=== PATIENT | female | born 1950 | race Caucasian/White ===

== ENCOUNTER 2016-11-20 22:06 | Inpatient (IN) | payer OTHER ==
[~2016-11-20] VITALS: Ht 160 cm; Wt 71.4 kg
--- NOTE | ~2016-11-20 | EKG ---
[place], [place] ELECTROCARDIOGRAM REPORT NAME: MAYRA CEDENO UNIT #: [id number] ROOM: 511 DOCTOR: ANNETTE SCANLON MD BIRTHDATE: [birth year] DOS: 11/21/2016 TIME: 22:16 p.m. Normal sinus rhythm at rate of 80. Early precordial R-wave progression. Nonspecific ST and T-wave changes especially in the lateral leads. Abnormal electrocardiogram. ANNETTE SCANLON MD CM:EKGRPT:ELECTROCARDIOGRAM REPORT [id number] ANNETTE SCANLON MD
--- NOTE | ~2016-11-20 | CON ---
[place], [place] REPORT OF CONSULTATION NAME: MAYRA CEDENO UNIT #: [id number] ROOM: 511 DOCTOR: ANNETTE SCANLON MD BIRTHDATE: [birth year] DOS: 11/21/2016 CARDIOLOGY CONSULTATION REASON FOR CONSULTATION: Chest pain, history of coronary artery disease. HISTORY OF PRESENT ILLNESS: The patient is a 65-year-old woman who does have a history of significant vascular disease. She states that she had angina, which prompted placement of stents in 2010. She was hospitalized here at [facility] with chest pain in January 2016. She ruled out for myocardial infarction. A pharmacologic stress test done on 02/12/2016 showed an ejection fraction of 75% with normal myocardial perfusion. There was no evidence for ischemia or previous infarction. At about the same time she did have an echocardiogram on 02/11/2016 which showed normal left ventricular size, wall motion and systolic function with mild left ventricular hypertrophy, trivial mitral insufficiency, trivial tricuspid insufficiency and a trivial pericardial effusion. In addition to her known coronary disease, she has had bilateral carotid endarterectomies and does have significant claudications of her right leg. She is being followed by Dr. Light for her peripheral vascular disease. She states that for the last 24 hours, she has had a new pain in her left side. She stated that it started as a funny ache in her left anterior chest followed by pain in her left back and numbness in a band-like distribution across her left flank. She continues to have significant pain and tenderness in her back even though the numbness on her left side has improved somewhat. This is different from her initial angina, which she experienced in 2010. Her electrocardiogram has shown no acute changes and her cardiac biomarkers are normal despite the fact that she has discomfort for several hours. PAST MEDICAL HISTORY: Includes: 1. Hypertension. 2. Atherosclerotic heart disease status post 2 stents in 2010. 3. Carotid vascular disease, status post left carotid endarterectomy around 2012 and right carotid endarterectomy around 2014. 4. Lower extremity peripheral vascular disease with claudications and occasional weakness in her right leg. 5. Hyperlipidemia. 6. Essential hypertension. 7. Hypothyroidism. 8. Long-term and ongoing tobacco abuse. 9. History of cholecystectomy and hysterectomy. REVIEW OF SYSTEMS: The patient denies diplopia, loss of vision, or focal weakness, but she did have numbness in her left side prior to admission. She denies syncope or lightheadedness. She denies nausea or vomiting. She denies fevers, chills or sweats. She denies orthopnea or PND. She denies palpitations or syncope. She denies hemoptysis or hematemesis. She denies bleeding in her urine or bowels. She denies any change in bowel or bladder habits. She denies [place], [place] REPORT OF CONSULTATION NAME: MAYRA CEDENO UNIT #: [id number] ROOM: 511 DOCTOR: ANNETTE SCANLON MD BIRTHDATE: [birth year] any swelling in her legs. She does note that she has been told she has a rash on her back in the distribution of her pain, which is new. She denies heat or cold intolerance and denies polyuria, polydipsia. MEDICATIONS: Prior to admission, amlodipine 5 mg per day, aspirin 81 mg per day, vitamin D 1000 units per day, citalopram 20 mg per day, clopidogrel 75 mg per day, famotidine 40 mg daily, fenofibrate 160 mg daily, isosorbide mononitrate 30 mg b.i.d., levothyroxine 0.1 mg daily, losartan 50 mg b.i.d., metoprolol 25 mg b.i.d., and simvastatin 40 mg at h.s. ALLERGIES: She has no known drug allergies. SOCIAL HISTORY: The patient is a long-term and ongoing cigarette smoker. She also smokes marijuana. She denies any alcohol consumption. FAMILY HISTORY: Her father at age 50-60 from a heart attack. Her mother of natural causes. PHYSICAL EXAMINATION: GENERAL: The patient is a well-nourished white female who is awake, alert, oriented. VITAL SIGNS: Pulse is 62 and regular, blood pressure is 174/70. She is afebrile. She weighs 71.4 kg and has a body mass index of 27.9. HEENT: Normocephalic, atraumatic. Extraocular muscles are intact. Sclerae are clear. Pupils are equal, round and react to light. The oral mucosa is moist. Tongue is midline. NECK: Supple. She has no jugular distention. She does have a moderate carotid bruit on the right and a soft bruit on the left. She has no neck or supraclavicular masses. No thyromegaly. LUNGS: Respirations are unlabored. She does have decreased breath sounds at the bases with mild expiratory prolongation. She had no wheezes or rales. She does have a left back mottled erythematous region in the distribution of her pain at about the T8 or T9 level. There is no blister formation at this time. She has no presacral edema, but her skin is tender at the site of the rash. CARDIOVASCULAR: Her heart has a regular rhythm with a soft S4 gallop and no S3 or murmur. The PMI is not displaced. She has no precordial heave, lift or thrill. ABDOMEN: Soft and normally active without masses, organomegaly or bruits. EXTREMITIES: Showed no edema. She has adequate pulses in her left foot but I could not feel any pulses in the popliteal or distal pulses on the right. LABORATORY DATA: I reviewed her electrocardiogram, which showed sinus rhythm with normal tracing. Serial troponin levels have been normal. IMPRESSION: 1. Atypical chest pain with a rash which may be consistent with early herpes zoster. 2. History of coronary artery disease. 3. Stress test and echocardiogram done in January 2016 were low risk examinations. 4. Carotid vascular disease with a right carotid bruit, status post bilateral [place], [place] REPORT OF CONSULTATION NAME: MAYRA CEDENO UNIT #: [id number] ROOM: [facility] DOCTOR: ANNETTE SCANLON MD BIRTHDATE: [birth year] endarterectomies. 5. Peripheral vascular disease with claudications and poor pulses in her right lower extremity below the knee. 6. Elevated blood pressure, not currently well controlled. PLAN: At this point, I would continue to monitor her chest pain. I will increase her beta dwaine to help control her blood pressure and for treatment of her coronary disease. I also stopped amlodipine and started hydrochlorothiazide since this is likely to be more effective in controlling her blood pressure long-term. I would keep a very close watch on her rash on her back and if it does show signs of blistering, this should be treated with antiviral agents to prevent postherpetic neuralgia. It is very likely that she does have herpes zoster and that this is the cause of recurrent symptoms rather than an acute coronary syndrome. We will follow the patient with her other physicians and I thank the hospitalist physicians for asking our advice regarding her care. ANNETTE SCANLON MD CM:CONSTR:REPORT OF CONSULTATION 1150 11/22/16 0605 interface
--- NOTE | ~2016-11-20 | WRIGHTHP ---
[place], [place] PATIENT HISTORY AND PHYSICAL EXAM NAME: MAYRA CEDENO [facility] #: [id number] UNIT #: [id number] ROOM: 511 DOCTOR: VALERIE BOURGEOIS DO BIRTHDATE: [birth year] DOS: 11/21/2016 PRIMARY CARE PHYSICIAN: Dr. Nicole. The patient was seen and evaluated with the resident on 11/21/2016. Please see the resident's note for further details. ASSESSMENT: 1. Acute unstable angina. 2. Dyspnea on exertion. 3. Mild cellulitis of the left lower extremity secondary to cat scratches. 4. Vitamin B12 deficiency. 5. Coronary artery disease with history of stents in 2010. 6. Diabetes mellitus type 2, currently managed with diet. 7. Hypertension. 8. Hyperlipidemia. 9. Chronic obstructive pulmonary disease. 10. Tobacco abuse. 11. Peripheral arterial disease, which was seen on CTA. 12. History of bilateral carotid endarterectomies. 13. Hypothyroidism. 14. Gastroesophageal reflux disease. 15. Negative cardiac stress test in 01/2016. 16. Echocardiogram in 01/2016 measured a normal ejection fraction. PLAN: Continue heparin, beta dwaine, aspirin. Cardiology has been consulted. Continue to follow cardiac enzymes. Antibiotics have been started for the cellulitis from the cat scratches. Repeat labs in the morning. VALERIE BOURGEOIS DO CM:HISPHYS:PATIENT HISTORY AND PHYSICAL EXAMINATION 1320 1341 VALERIE BOURGEOIS DO 11/21/16 1342 interface
[~2016-11-20 22:06] MED LIST: AMLODIPINE BESYL5 MG PO; ASPIR-LOX AD325 MG PO; ASPIRIN81 M1 PO; CIPRO500 MG PO; CITALOPRAM20 MG PO; COZAAR25 M1 PO; FAMOTIDINE20 MG PO; FAMOTIDINE40 MG PO; FENOFIBRATE160 MG PO; GLUCOPHAGE500 MG PO; ISOSORBIDE30 MG PO; KEFLEX 500 MG E2 CAP PO; LEVOTHYROXINE0.1 M1 PO; LOSARTAN POTASS50 M1 PO; MEDROL DOSEPAK4 MG PO; METOPROLOL25 MG PO; PLAVIX75 MG PO; PREDNISONE10 MG PO; PRINIVIL20 MG PO; SIMVASTATIN40 MG PO; VIBRAMYCIN100 MG PO
[2016-11-20 22:15] VITALS: BP 154/80
[2016-11-20] MEDS ORDERED: VITAMIN D31000 IU PO (22:15)
[2016-11-20 22:34] LABS: BASO % 0.4 % (0.0-1.0); EOS # 0.1 10*3/uL (0.0-0.4); EOS % 0.5 % (1.0-4.0); HEMATOCRIT 42.8 % (37.0-47.0); HEMOGLOBIN 14.3 g/dl (12.0-16.0); LYMPH # 1.5 10*3/uL (1.3-4.4); LYMPH % 15.9 % (27.0-41.0); MEAN CELL VOLUME 91.3 fl (81.0-99.0); MEAN CORPUSCULAR HGB 30.5 pg (27.0-31.0); MEAN CORPUSCULAR HGB CONC 33.4 g/dl (33.0-37.0); MONO # 0.5 10*3/uL (0.1-1.0); MONO % 5.8 % (3.0-9.0); NEUT # 7.1 10*3/uL (2.3-7.9); PLATELET COUNT AUTOMATED 226 10*3/uL (130-400); RED BLOOD COUNT 4.69 10*6/uL (4.10-5.10); RED CELL DISTRI WIDTH 13.6 % (0-14.5); WHITE BLOOD COUNT 9.2 10*3/uL (4.8-10.8)
[2016-11-20 23:04] LABS: ALKALINE PHOSPHATASE 66 U/L (45-117); BILIRUBIN, TOTAL 0.4 mg/dl (0.2-1.0); BUN 18 mg/dl (7-24); CARBON DIOXIDE 28 mmol/L (21-32); CHLORIDE 105 mmol/L (98-107); CPK 231 U/L (26-192); EST GLOM FILT AFRICAN AMERICAN > 60 ml/min; GLUCOSE 138 mg/dL (65-99); POTASSIUM 3.4 mmol/L (3.5-5.1); SGOT/AST 19 IU/L (3-35); SGPT/ALT 24 U/L (12-78); SODIUM 142 mmol/L (136-145); TOTAL PROTEIN 7.2 gm/dL (6.4-8.2)
[2016-11-20 23:05] LABS: CKMB 4.7 ng/ml (0.5-3.6)
[2016-11-20 23:15] LABS: TROPONIN I < 0.015 ng/ml (<0.045)
[2016-11-21 01:50] VITALS: BP 174/65; BP 178/65
[2016-11-21 04:00] VITALS: BP 160/74
[2016-11-21 06:34] LABS: BASO % 0.5 % (0.0-1.0); EOS # 0.1 10*3/uL (0.0-0.4); EOS % 0.6 % (1.0-4.0); HEMATOCRIT 39.8 % (37.0-47.0); LYMPH # 2.2 10*3/uL (1.3-4.4); LYMPH % 28.2 % (27.0-41.0); MEAN CELL VOLUME 93.9 fl (81.0-99.0); MEAN CORPUSCULAR HGB 30.7 pg (27.0-31.0); MEAN CORPUSCULAR HGB CONC 32.7 g/dl (33.0-37.0); MEAN PLATELET VOLUME 10.2 fl (9.6-12.3); MONO # 0.5 10*3/uL (0.1-1.0); MONO % 6.2 % (3.0-9.0); NEUT # 5.1 10*3/uL (2.3-7.9); NEUT % 64.4 % (47.0-73.0); PLATELET COUNT AUTOMATED 179 10*3/uL (130-400); RED BLOOD COUNT 4.24 10*6/uL (4.10-5.10); RED CELL DISTRI WIDTH 13.3 % (0-14.5); WHITE BLOOD COUNT 7.9 10*3/uL (4.8-10.8)
[2016-11-21 06:43] LABS: INTERNATIONAL NORM RATIO 1.1 (2.0-3.5); PROTHROMBIN TIME 11.5 SECONDS (9.0-12.4)
[2016-11-21 06:48] LABS: BUN 16 mg/dl (7-24); CARBON DIOXIDE 27 mmol/L (21-32); CHLORIDE 109 mmol/L (98-107); CHOLESTEROL 122 mg/dL (<200); EST GLOM FILT AFRICAN AMERICAN > 60 ml/min; GLUCOSE 116 mg/dL (65-99); HDL CHOLESTEROL 38 mg/dl (40-60); LDL CHOLESTEROL 60 mg/dL (9-159); MAGNESIUM 2.1 mg/dL (1.5-2.1); PHOSPHOROUS 3.7 mg/dL (2.5-4.9); SODIUM 141 mmol/L (136-145); TRIGLYCERIDES 122 mg/dl (<150); VLDL CHOLESTEROL 24 mg/dL (6-40)
[2016-11-21 07:05] LABS: CKMB 6.8 ng/ml (0.5-3.6); TROPONIN I < 0.015 ng/ml (<0.045)
[2016-11-21 07:48] LABS: HEMOGLOBIN A1c 6.6 % (4.8-5.6)
[2016-11-21 08:00] VITALS: BP 174/70
[2016-11-21 08:45] LABS: FOLIC ACID 6.95 ng/mL (>5.38)
[2016-11-21 12:00] VITALS: BP 167/72
[2016-11-21 12:40] LABS: TROPONIN I < 0.015 ng/ml (<0.045)
[2016-11-21 12:41] LABS: CKMB 6.4 ng/ml (0.5-3.6)
[2016-11-21 16:00] VITALS: BP 147/49
[2016-11-21 18:21] LABS: TROPONIN I < 0.015 ng/ml (<0.045)
[2016-11-21 20:00] VITALS: BP 160/57
[2016-11-22] VITALS: BP 143/56
[2016-11-22 06:01] LABS: ALBUMIN 3.5 gm/dl (3.1-4.5); ALKALINE PHOSPHATASE 53 U/L (45-117); BILIRUBIN, TOTAL 0.3 mg/dl (0.2-1.0); BUN 19 mg/dl (7-24); CARBON DIOXIDE 26 mmol/L (21-32); CHLORIDE 108 mmol/L (98-107); EST GLOM FILT AFRICAN AMERICAN > 60 ml/min; GLUCOSE 121 mg/dL (65-99); MAGNESIUM 2.1 mg/dL (1.5-2.1); POTASSIUM 4.2 mmol/L (3.5-5.1); SGOT/AST 19 IU/L (3-35); SGPT/ALT 22 U/L (12-78); SODIUM 141 mmol/L (136-145); TOTAL PROTEIN 6.4 gm/dL (6.4-8.2)
[2016-11-22 06:08] LABS: BASO % 0.5 % (0.0-1.0); EOS # 0.1 10*3/uL (0.0-0.4); EOS % 1.8 % (1.0-4.0); HEMATOCRIT 41.8 % (37.0-47.0); HEMOGLOBIN 13.4 g/dl (12.0-16.0); LYMPH % 33.6 % (27.0-41.0); MEAN CELL VOLUME 93.7 fl (81.0-99.0); MEAN CORPUSCULAR HGB CONC 32.1 g/dl (33.0-37.0); MEAN PLATELET VOLUME 10.8 fl (9.6-12.3); MONO # 0.4 10*3/uL (0.1-1.0); MONO % 6.8 % (3.0-9.0); NEUT # 3.5 10*3/uL (2.3-7.9); PLATELET COUNT AUTOMATED 172 10*3/uL (130-400); RED BLOOD COUNT 4.46 10*6/uL (4.10-5.10); RED CELL DISTRI WIDTH 13.5 % (0-14.5); WHITE BLOOD COUNT 6.1 10*3/uL (4.8-10.8)
[2016-11-22 08:00] VITALS: BP 148/54
[2016-11-22 12:00] VITALS: BP 154/54
[2016-11-22] MEDS ORDERED: HYDR12.5C PO (13:13)
[2016-11-22] MEDS ORDERED: METOPROLOL TART50 M1 PO (13:13)
[2016-11-22] MEDS ORDERED: ZITHROMAX250 MG PO (13:13)
[2016-11-22] MEDS ORDERED: B12,B-12,B 12500 MC1 PO (13:17)
[2016-11-22] MEDS ORDERED: K-TAB20 MEQ PO (16:39)
== END 2016-11-22 14:18 | disposition home or self-care (01) | DRG 392 ==
LOC: ED 22:06 → EDHOLD 11-21 01:11 → 5E 11-21 01:11
PROVIDERS: Emergency Medicine; Student in an Organized Health Care Education/Training Program
DX: K21.9 Gastro-esophageal reflux disease without esophagitis (principal); A28.1 Cat-scratch disease; I24.9 Acute ischemic heart disease, unspecified; L03.116 Cellulitis of left lower limb; E11.51 Type 2 diabetes mellitus with diabetic peripheral angiopathy without gangrene; I25.110 Atherosclerotic heart disease of native coronary artery with unstable angina pectoris; E11.65 Type 2 diabetes mellitus with hyperglycemia; R07.89 Other chest pain; E87.6 Hypokalemia; F17.200 Nicotine dependence, unspecified, uncomplicated; F12.10 Cannabis abuse, uncomplicated; E78.5 Hyperlipidemia, unspecified; I10 Essential (primary) hypertension; E55.9 Vitamin D deficiency, unspecified; E03.9 Hypothyroidism, unspecified; J44.9 Chronic obstructive pulmonary disease, unspecified; R09.89 Other specified symptoms and signs involving the circulatory and respiratory systems; I99.8 Other disorder of circulatory system; W55.01XA Bitten by cat, initial encounter; Z79.01 Long term (current) use of anticoagulants; Z79.899 Other long term (current) drug therapy; Z79.82 Long term (current) use of aspirin; Z90.710 Acquired absence of both cervix and uterus; Z82.49 Family history of ischemic heart disease and other diseases of the circulatory system; Z90.49 Acquired absence of other specified parts of digestive tract

== ENCOUNTER 2016-11-27 10:53 | Emergency (ER) | payer OTHER ==
[~2016-11-27] VITALS: Ht 160 cm; Wt 70.8 kg
[~2016-11-27 10:53] MED LIST changes: +B12,B-12,B 12500 MC1 PO; +HYDR12.5C PO; +K-TAB20 MEQ PO; +METOPROLOL TART50 M1 PO; +VITAMIN D31000 IU PO; +ZITHROMAX250 MG PO
[2016-11-27] MEDS ORDERED: AMLODIPINE BESYL5 MG PO (11:09)
[2016-11-27 11:46] LABS: BASO % 0.5 % (0.0-1.0); EOS # 0.1 10*3/uL (0.0-0.4); EOS % 1.1 % (1.0-4.0); HEMATOCRIT 42.6 % (37.0-47.0); LYMPH # 1.8 10*3/uL (1.3-4.4); LYMPH % 31.2 % (27.0-41.0); MEAN CORPUSCULAR HGB 30.6 pg (27.0-31.0); MEAN CORPUSCULAR HGB CONC 32.9 g/dl (33.0-37.0); MEAN PLATELET VOLUME 10.4 fl (9.6-12.3); MONO # 0.3 10*3/uL (0.1-1.0); MONO % 5.3 % (3.0-9.0); NEUT # 3.4 10*3/uL (2.3-7.9); NEUT % 61.4 % (47.0-73.0); PLATELET COUNT AUTOMATED 226 10*3/uL (130-400); RED BLOOD COUNT 4.58 10*6/uL (4.10-5.10); RED CELL DISTRI WIDTH 13.1 % (0-14.5); WHITE BLOOD COUNT 5.6 10*3/uL (4.8-10.8)
[2016-11-27 12:00] LABS: BUN 22 mg/dl (7-24); CARBON DIOXIDE 29 mmol/L (21-32); CHLORIDE 106 mmol/L (98-107); EST GLOM FILT AFRICAN AMERICAN > 60 ml/min; GLUCOSE 131 mg/dL (65-99); POTASSIUM 4.3 mmol/L (3.5-5.1); SODIUM 141 mmol/L (136-145)
[2016-11-27 12:03] LABS: TROPONIN I < 0.015 ng/ml (<0.045)
== END 2016-11-28 04:01 | disposition short-term general hospital (02) ==
LOC: ED 10:53
PROVIDERS: Emergency Medicine
DX: R53.1 Weakness (principal); F17.200 Nicotine dependence, unspecified, uncomplicated; F12.10 Cannabis abuse, uncomplicated; Z90.49 Acquired absence of other specified parts of digestive tract; I10 Essential (primary) hypertension; I25.10 Atherosclerotic heart disease of native coronary artery without angina pectoris; E78.5 Hyperlipidemia, unspecified; E03.9 Hypothyroidism, unspecified; Z79.82 Long term (current) use of aspirin; Z79.899 Other long term (current) drug therapy

== ENCOUNTER 2017-09-26 10:28 | Emergency (ER) | payer OTHER ==
[~2017-09-26] VITALS: Ht 162.5 cm; Wt 65.3 kg
[2017-09-26] MEDS ORDERED: CYCLOBENZAPRINE10 MG PO (10:47)
== END 2017-09-26 11:40 | disposition home or self-care (01) ==
LOC: ED 10:28
DX: M25.511 Pain in right shoulder (principal); F17.200 Nicotine dependence, unspecified, uncomplicated; F12.10 Cannabis abuse, uncomplicated; I25.10 Atherosclerotic heart disease of native coronary artery without angina pectoris; K21.9 Gastro-esophageal reflux disease without esophagitis; E78.5 Hyperlipidemia, unspecified; I10 Essential (primary) hypertension; E03.9 Hypothyroidism, unspecified; Z90.49 Acquired absence of other specified parts of digestive tract; Z90.710 Acquired absence of both cervix and uterus; Z98.890 Other specified postprocedural states; Z79.899 Other long term (current) drug therapy; Z79.82 Long term (current) use of aspirin

== ENCOUNTER → 2020-12-28 | Outpatient (CLI) | payer OTHER ==
[~2020-12-28] MED LIST changes: +CYCLOBENZAPRINE10 MG PO
[2020-12-28 16:36] LABS: BASO % 0.5 % (0.0-1.0); EOS % 0.7 % (1.0-4.0); HEMATOCRIT 46.1 % (37.0-47.0); LYMPH # 1.7 10*3/uL (1.3-4.4); LYMPH % 30.7 % (27.0-41.0); MEAN CELL VOLUME 93.3 fl (81.0-99.0); MEAN CORPUSCULAR HGB 30.6 pg (27.0-31.0); MEAN CORPUSCULAR HGB CONC 32.8 g/dl (33.0-37.0); MONO # 0.4 10*3/uL (0.1-1.0); MONO % 6.7 % (3.0-9.0); NEUT # 3.4 10*3/uL (2.3-7.9); NEUT % 61.2 % (47.0-73.0); PLATELET COUNT AUTOMATED 210 10*3/uL (130-400); RED BLOOD COUNT 4.94 10*6/uL (4.10-5.10); RED CELL DISTRI WIDTH 13.7 % (0-14.5); RETICULOCYTE % 1.59 % (0.50-2.50); WHITE BLOOD COUNT 5.5 10*3/uL (4.8-10.8)
[2020-12-28 17:10] LABS: ALBUMIN 3.6 gm/dl (3.1-4.5); CREATININE 1.4 mg/dL (0.55-1.02); POTASSIUM 3.5 mmol/L (3.5-5.1); TOTAL PROTEIN 7.2 gm/dL (6.4-8.2)
[2020-12-28 17:17] LABS: THYROID STIM HORMONE (HS) 2.61 uIU/ml (0.358-4.75)
[2020-12-28 17:22] LABS: VITAMIN D, 25-HYDROXY 59.8 ng/mL (30-100)
== END | disposition home or self-care (01) ==
LOC: LAB 15:08
PROVIDERS: ATTEND Family Medicine
DX: E55.9 Vitamin D deficiency, unspecified (principal); R79.89 Other specified abnormal findings of blood chemistry; R53.83 Other fatigue; R74.8 Abnormal levels of other serum enzymes

== ENCOUNTER → 2020-12-29 | Outpatient (CLI) | payer OTHER ==
[2020-12-29 15:51] LABS: BILIRUBIN Negative (Negative); BLOOD Trace-Lysed (Negative); CLARITY Cloudy (Clear); COLOR Dark Yellow (Yellow); GLUCOSE Negative (Negative); KETONE Trace (Negative); LEUKO ESTERASE 1+ (Negative); NITRITE Negative (Negative); SPECIFIC GRAVITY 1.025 (1.001-1.030)
[2020-12-29 15:57] LABS: RBC 0-2 rbc/hpf (0-2)
[2020-12-29 15:58] LABS: BACTERIA 1+; CALCIUM OXALATE CRYSTALS 4+
== END | disposition home or self-care (01) ==
LOC: LAB 15:31
PROVIDERS: ATTEND Family Medicine
DX: E55.9 Vitamin D deficiency, unspecified (principal); R79.89 Other specified abnormal findings of blood chemistry; R74.8 Abnormal levels of other serum enzymes; R53.83 Other fatigue

== ENCOUNTER → 2021-06-03 | Outpatient (CLI) | payer OTHER | END | disposition home or self-care (01) | LOC: RAD 14:25 | PROVIDERS: ATTEND Family Medicine | DX: M16.11 Unilateral primary osteoarthritis, right hip (principal); M76.891 Other specified enthesopathies of right lower limb, excluding foot; I70.0 Atherosclerosis of aorta ==

== ENCOUNTER → 2021-08-01 | Outpatient (CLI) | payer OTHER ==
[2021-08-01 12:33] LABS: BASO % 0.6 % (0.0-1.0); EOS # 0.1 10*3/uL (0.0-0.4); EOS % 0.8 % (1.0-4.0); HEMATOCRIT 48.2 % (37.0-47.0); LYMPH # 1.9 10*3/uL (1.3-4.4); LYMPH % 28.6 % (27.0-41.0); MEAN CELL VOLUME 96.8 fl (81.0-99.0); MEAN CORPUSCULAR HGB 30.7 pg (27.0-31.0); MEAN CORPUSCULAR HGB CONC 31.7 g/dl (33.0-37.0); MEAN PLATELET VOLUME 10.9 fl (9.6-12.3); MONO # 0.4 10*3/uL (0.1-1.0); MONO % 5.5 % (3.0-9.0); NEUT # 4.2 10*3/uL (2.3-7.9); NEUT % 63.9 % (47.0-73.0); PLATELET COUNT AUTOMATED 275 10*3/uL (130-400); RED BLOOD COUNT 4.98 10*6/uL (4.10-5.10); RED CELL DISTRI WIDTH 14.1 % (0-14.5); RETICULOCYTE % 1.52 % (0.50-2.50); WHITE BLOOD COUNT 6.5 10*3/uL (4.8-10.8)
[2021-08-01 12:33] LABS: BILIRUBIN Negative (Negative); BLOOD 2+ (Negative); CLARITY Cloudy (Clear); COLOR Yellow (Yellow); GLUCOSE Trace (Negative); KETONE Negative (Negative); LEUKO ESTERASE 2+ (Negative); NITRITE Negative (Negative); PH 5.5 (4.5-8.0)
[2021-08-01 12:51] LABS: ALBUMIN 3.4 gm/dl (3.1-4.5); ALKALINE PHOSPHATASE 53 U/L (45-117); BUN 16 mg/dl (7-24); CHLORIDE 108 mmol/L (98-107); CHOLESTEROL 132 mg/dL (<200); CREATININE 1.09 mg/dL (0.55-1.02); GAMMA GLUTAMYL TRANSPEPTIDASE 13 U/L (5-55); IRON 82 ug/dL (50-170); LDL CHOLESTEROL 71 mg/dL (9-159); POTASSIUM 3.3 mmol/L (3.5-5.1); SGOT/AST 14 IU/L (3-35); SGPT/ALT 20 U/L (12-78); SODIUM 141 mmol/L (136-145); TOTAL IRON BINDING CAPACITY 477 ug/dl (250-450); TOTAL PROTEIN 6.9 gm/dL (6.4-8.2); TRIGLYCERIDES 131 mg/dl (<150)
[2021-08-01 13:06] LABS: MUCOUS 2+; WBC 16-20 wbc/hpf (0-5); YEAST TRACE
[2021-08-01 13:15] LABS: VITAMIN D, 25-HYDROXY 44.2 ng/mL (30-100)
[2021-08-01 13:16] LABS: FERRITIN 120.5 ng/mL (10.0-291.0)
[2021-08-02 08:08] LABS: CREATININE,URINE 109.2 mg/dL (Not Estab.)
== END ==
LOC: LAB 12:08
PROVIDERS: ATTEND Family Medicine
DX: J43.9 Emphysema, unspecified (principal); R79.89 Other specified abnormal findings of blood chemistry; E55.9 Vitamin D deficiency, unspecified; E11.9 Type 2 diabetes mellitus without complications; R53.83 Other fatigue; R74.8 Abnormal levels of other serum enzymes

== ENCOUNTER → 2021-09-02 | Outpatient (CLI) | payer OTHER | END | disposition home or self-care (01) | LOC: US 10:00 | PROVIDERS: ATTEND Internal Medicine Cardiovascular Disease | DX: I70.203 Unspecified atherosclerosis of native arteries of extremities, bilateral legs (principal); Z95.5 Presence of coronary angioplasty implant and graft; Z79.899 Other long term (current) drug therapy ==

== ENCOUNTER → 2021-12-06 | Outpatient (CLI) | payer OTHER ==
[2021-12-06 10:43] LABS: BASO % 0.6 % (0.0-1.0); EOS % 0.5 % (1.0-4.0); HEMATOCRIT 48.4 % (37.0-47.0); LYMPH # 1.9 10*3/uL (1.3-4.4); MEAN CELL VOLUME 96.2 fl (81.0-99.0); MEAN CORPUSCULAR HGB CONC 32.2 g/dl (33.0-37.0); MEAN PLATELET VOLUME 11.4 fl (9.6-12.3); MONO # 0.3 10*3/uL (0.1-1.0); MONO % 5.2 % (3.0-9.0); NEUT # 4.2 10*3/uL (2.3-7.9); NEUT % 64.4 % (47.0-73.0); PLATELET COUNT AUTOMATED 209 10*3/uL (130-400); RED BLOOD COUNT 5.03 10*6/uL (4.10-5.10); RED CELL DISTRI WIDTH 13.9 % (0-14.5); RETICULOCYTE % 1.15 % (0.50-2.50); WHITE BLOOD COUNT 6.6 10*3/uL (4.8-10.8)
[2021-12-06 11:03] LABS: CREATININE 1.21 mg/dL (0.55-1.02); POTASSIUM 3.3 mmol/L (3.5-5.1); THYROXINE (T4) TOTAL 13.3 ug/dl (4.8-13.9)
[2021-12-06 11:04] LABS: BILIRUBIN Negative (Negative); BLOOD 2+ (Negative); CLARITY Cloudy (Clear); COLOR Yellow (Yellow); GLUCOSE Trace (Negative); KETONE Trace (Negative); NITRITE Negative (Negative); PH 5.5 (4.5-8.0)
[2021-12-06 11:10] LABS: THYROID STIM HORMONE (HS) 1.64 uIU/ml (0.358-4.75)
[2021-12-06 11:51] LABS: LEUKO ESTERASE 1+ (Negative)
[2021-12-06 11:52] LABS: RBC 16-20 rbc/hpf (0-2)
[2021-12-06 11:53] LABS: BACTERIA 1+; MUCOUS 2+
[2021-12-06 12:08] LABS: FERRITIN 97.4 ng/mL (10.0-291.0); VITAMIN D, 25-HYDROXY 47.2 ng/mL (30-100)
== END | disposition home or self-care (01) ==
LOC: LAB 10:18
PROVIDERS: ATTEND Family Medicine
DX: E78.5 Hyperlipidemia, unspecified (principal); E55.9 Vitamin D deficiency, unspecified; R79.89 Other specified abnormal findings of blood chemistry; R53.83 Other fatigue; R74.8 Abnormal levels of other serum enzymes

== ENCOUNTER → 2022-06-05 | Outpatient (CLI) | payer OTHER ==
[2022-06-05 12:20] LABS: BILIRUBIN Negative (Negative); BLOOD 2+ (Negative); CLARITY Cloudy (Clear); COLOR Yellow (Yellow); GLUCOSE Negative (Negative); KETONE Trace (Negative); LEUKO ESTERASE 2+ (Negative); NITRITE Negative (Negative); UROBILINOGEN 0.2 E.U./dl (0.0-1.0)
[2022-06-05 13:09] LABS: BASO # 0.1 10*3/uL (0.0-0.1); EOS % 0.7 % (1.0-4.0); LYMPH # 1.9 10*3/uL (1.3-4.4); LYMPH % 32.1 % (27.0-41.0); MEAN CORPUSCULAR HGB 30.6 pg (27.0-31.0); MEAN CORPUSCULAR HGB CONC 31.5 g/dl (33.0-37.0); MEAN PLATELET VOLUME 11.8 fl (9.6-12.3); MONO # 0.4 10*3/uL (0.1-1.0); MONO % 6.8 % (3.0-9.0); NEUT # 3.5 10*3/uL (2.3-7.9); NEUT % 59.1 % (47.0-73.0); PLATELET COUNT AUTOMATED 192 10*3/uL (130-400); RED BLOOD COUNT 4.74 10*6/uL (4.10-5.10); RED CELL DISTRI WIDTH 13.6 % (0-14.5); RETICULOCYTE % 1.44 % (0.50-2.50); WHITE BLOOD COUNT 5.9 10*3/uL (4.8-10.8)
[2022-06-05 13:31] LABS: BUN 15 mg/dl (7-24); CHLORIDE 110 mmol/L (98-107); CHOLESTEROL 132 mg/dL (<200); CREATININE 0.93 mg/dL (0.55-1.02); GAMMA GLUTAMYL TRANSPEPTIDASE 6 U/L (5-55); IRON 59 ug/dL (50-170); LDL CHOLESTEROL 58 mg/dL (9-159); POTASSIUM 4.1 mmol/L (3.5-5.1); SGOT/AST 11 IU/L (3-35); SGPT/ALT 17 U/L (12-78); SODIUM 142 mmol/L (136-145); T3 UPTAKE 36 % (31-39); THYROXINE (T4) TOTAL 11.1 ug/dl (4.8-13.9); TOTAL PROTEIN 6.5 gm/dL (6.4-8.2); TRIGLYCERIDES 124 mg/dl (<150)
[2022-06-05 13:38] LABS: ALKALINE PHOSPHATASE 51 U/L (45-117)
[2022-06-05 13:59] LABS: VITAMIN D, 25-HYDROXY 40.8 ng/mL (30-100)
[2022-06-05 14:00] LABS: FERRITIN 88.7 ng/mL (10.0-291.0)
== END | disposition home or self-care (01) ==
LOC: LAB 11:48
PROVIDERS: ATTEND Family Medicine
DX: E78.5 Hyperlipidemia, unspecified (principal); E55.9 Vitamin D deficiency, unspecified; R79.89 Other specified abnormal findings of blood chemistry; R53.83 Other fatigue; R74.8 Abnormal levels of other serum enzymes

== ENCOUNTER → 2022-11-06 | Outpatient (CLI) | payer OTHER ==
[2022-11-06 08:50] LABS: BASO % 0.6 % (0.0-1.0); EOS # 0.1 10*3/uL (0.0-0.4); EOS % 0.8 % (1.0-4.0); HEMATOCRIT 47.2 % (37.0-47.0); LYMPH # 1.4 10*3/uL (1.3-4.4); LYMPH % 20.5 % (27.0-41.0); MEAN CELL VOLUME 94.6 fl (81.0-99.0); MEAN CORPUSCULAR HGB 30.7 pg (27.0-31.0); MEAN CORPUSCULAR HGB CONC 32.4 g/dl (33.0-37.0); MONO # 0.4 10*3/uL (0.1-1.0); MONO % 6.2 % (3.0-9.0); NEUT # 4.7 10*3/uL (2.3-7.9); NEUT % 71.6 % (47.0-73.0); PLATELET COUNT AUTOMATED 215 10*3/uL (130-400); RED BLOOD COUNT 4.99 10*6/uL (4.10-5.10); RETICULOCYTE % 1.36 % (0.50-2.50); WHITE BLOOD COUNT 6.6 10*3/uL (4.8-10.8)
[2022-11-06 09:44] LABS: ALKALINE PHOSPHATASE 44 U/L (46-116); BUN 15 mg/dl (9-23); CHLORIDE 107 mmol/L (98-107); CHOLESTEROL 137 mg/dL (<200); GAMMA GLUTAMYL TRANSPEPTIDASE 14 U/L (0-73); LDL CHOLESTEROL 70 mg/dL (9-159); POTASSIUM 3.2 mmol/L (3.4-5.1); SGPT/ALT 8 U/L (10-49); T3 UPTAKE 26.7 % (22.4-36.7); THYROID STIM HORMONE (HS) 2.322 uIU/ml (0.550-4.780); THYROXINE (T4) TOTAL 8.8 ug/dl (4.5-10.9); TOTAL PROTEIN 6.3 gm/dL (6.0-8.0); TRIGLYCERIDES 130 mg/dl (<150)
[2022-11-06 09:45] LABS: VITAMIN D, 25-HYDROXY 40.9 ng/mL (30-100)
[2022-11-06 11:30] LABS: BILIRUBIN Negative (Negative); BLOOD 1+ (Negative); CLARITY Clear (Clear); COLOR Yellow (Yellow); GLUCOSE Negative (Negative); KETONE Negative (Negative); LEUKO ESTERASE Trace (Negative); NITRITE Negative (Negative); UROBILINOGEN 0.2 E.U./dl (0.0-1.0)
[2022-11-06 11:41] LABS: EPITHELIAL CELLS 0-2; RBC 0-2 rbc/hpf (0-2)
== END | disposition home or self-care (01) ==
LOC: LAB 08:12
PROVIDERS: ATTEND Family Medicine
DX: E78.5 Hyperlipidemia, unspecified (principal); E55.9 Vitamin D deficiency, unspecified; R79.89 Other specified abnormal findings of blood chemistry; R53.83 Other fatigue; R74.8 Abnormal levels of other serum enzymes

== ENCOUNTER 2023-06-29 16:05 | Emergency (ER) | payer OTHER ==
[~2023-06-29] VITALS: Ht 162.5 cm; Wt 51.7 kg
[2023-06-29 17:12] LABS: BASO % 0.2 % (0.0-1.0); EOS # 0.1 10*3/uL (0.0-0.4); EOS % 0.7 % (1.0-4.0); LYMPH # 2.3 10*3/uL (1.3-4.4); LYMPH % 25.6 % (27.0-41.0); MEAN CELL VOLUME 92.6 fl (81.0-99.0); MEAN CORPUSCULAR HGB 30.1 pg (27.0-31.0); MEAN CORPUSCULAR HGB CONC 32.4 g/dl (33.0-37.0); MEAN PLATELET VOLUME 10.3 fl (9.6-12.3); MONO # 0.7 10*3/uL (0.1-1.0); MONO % 8.1 % (3.0-9.0); NEUT # 5.6 10*3/uL (2.3-7.9); NEUT % 63.9 % (47.0-73.0); PLATELET COUNT AUTOMATED 248 10*3/uL (130-400); RED BLOOD COUNT 5.29 10*6/uL (4.10-5.10); RED CELL DISTRI WIDTH 13.7 % (0-14.5); WHITE BLOOD COUNT 8.8 10*3/uL (4.8-10.8)
[2023-06-29 17:34] LABS: ALKALINE PHOSPHATASE 67 U/L (46-116); BUN 22 mg/dl (9-23); CHLORIDE 104 mmol/L (98-107); POTASSIUM 3.2 mmol/L (3.4-5.1); SGPT/ALT 12 U/L (5-49); TOTAL PROTEIN 6.2 gm/dL (6.0-8.0)
[2023-06-29 18:23] LABS: BILIRUBIN Negative (Negative); BLOOD Negative (Negative); CLARITY Clear (Clear); COLOR Yellow (Yellow); GLUCOSE Trace (Negative); KETONE Negative (Negative); LEUKO ESTERASE Trace (Negative); NITRITE Negative (Negative); PH 5.5 (4.5-8.0); SPECIFIC GRAVITY >= 1.030 (1.001-1.030)
[2023-06-29 18:57] LABS: BACTERIA 3+; MUCOUS 2+; WBC 16-20 wbc/hpf (0-5)
[2023-06-29] MEDS ORDERED: SEPTDS PO (19:45)
== END 2023-06-29 19:54 | disposition home or self-care (01) ==
LOC: ED 16:05
PROVIDERS: Physician Assistant Medical
DX: N39.0 Urinary tract infection, site not specified (principal); N17.9 Acute kidney failure, unspecified; I10 Essential (primary) hypertension; I25.10 Atherosclerotic heart disease of native coronary artery without angina pectoris; Z90.49 Acquired absence of other specified parts of digestive tract; Z90.710 Acquired absence of both cervix and uterus; Z95.5 Presence of coronary angioplasty implant and graft; F17.200 Nicotine dependence, unspecified, uncomplicated; F12.90 Cannabis use, unspecified, uncomplicated

== ENCOUNTER → 2023-11-26 | Outpatient (CLI) | payer OTHER ==
[~2023-11-26] MED LIST changes: +SEPTDS PO
== END | disposition home or self-care (01) ==
LOC: MRI 01:52
PROVIDERS: ATTEND Psychiatry & Neurology Neurology
DX: I65.23 Occlusion and stenosis of bilateral carotid arteries (principal); R90.82 White matter disease, unspecified; R42 Dizziness and giddiness; I63.9 Cerebral infarction, unspecified

== ENCOUNTER → 2024-01-04 | Outpatient (CLI) | payer OTHER ==
[~2024-01-04] MED LIST changes: +IOHEXOL 300 MG/ML 100 ML VIAL ONE
[2024-01-04 10:29] LABS: BASO # 0.1 10*3/uL (0.0-0.1); BASO % 0.8 % (0.0-1.0); EOS # 0.1 10*3/uL (0.0-0.4); EOS % 0.8 % (1.0-4.0); HEMATOCRIT 51.4 % (37.0-47.0); MEAN CELL VOLUME 96.1 fl (81.0-99.0); MEAN CORPUSCULAR HGB 30.5 pg (27.0-31.0); MEAN CORPUSCULAR HGB CONC 31.7 g/dl (33.0-37.0); MEAN PLATELET VOLUME 10.8 fl (9.6-12.3); MONO # 0.5 10*3/uL (0.1-1.0); MONO % 7.6 % (3.0-9.0); NEUT % 60.5 % (47.0-73.0); PLATELET COUNT AUTOMATED 228 10*3/uL (130-400); RED BLOOD COUNT 5.35 10*6/uL (4.10-5.10); RED CELL DISTRI WIDTH 13.8 % (0-14.5); RETICULOCYTE % 1.54 % (0.50-2.50); WHITE BLOOD COUNT 6.5 10*3/uL (4.8-10.8)
[2024-01-04 11:04] LABS: ALKALINE PHOSPHATASE 48 U/L (46-116); BUN 16 mg/dl (9-23); CHLORIDE 105 mmol/L (98-107); CHOLESTEROL 120 mg/dL (<200); GAMMA GLUTAMYL TRANSPEPTIDASE 13 U/L (0-73); LDL CHOLESTEROL 62 mg/dL (9-159); POTASSIUM 3.7 mmol/L (3.4-5.1); SGPT/ALT 11 U/L (5-49); T3 UPTAKE 29.7 % (22.4-36.7); THYROXINE (T4) TOTAL 10.8 ug/dl (4.5-10.9); TRIGLYCERIDES 98 mg/dl (<150)
[2024-01-04 11:07] LABS: VITAMIN D, 25-HYDROXY 43.9 ng/mL (30-100)
== END ==
LOC: LAB 10:01
PROVIDERS: ATTEND Family Medicine
DX: E11.9 Type 2 diabetes mellitus without complications (principal); R79.89 Other specified abnormal findings of blood chemistry; R53.83 Other fatigue; R74.8 Abnormal levels of other serum enzymes; E78.5 Hyperlipidemia, unspecified; E55.9 Vitamin D deficiency, unspecified

== ENCOUNTER → 2024-01-05 | Outpatient (CLI) | payer OTHER ==
[~2024-01-05] MED LIST changes: +IOHEXOL 300 MG/ML 100 ML VIAL IV ONE; -IOHEXOL 300 MG/ML 100 ML VIAL ONE; +METHOCARBAMOL500 M1 PO; +PREDNISONE20 M1 PO
[2024-01-05 08:44] LABS: BILIRUBIN Negative (Negative); BLOOD Trace-Lysed (Negative); CLARITY Cloudy (Clear); COLOR Yellow (Yellow); GLUCOSE Negative (Negative); KETONE Negative (Negative); LEUKO ESTERASE 2+ (Negative); NITRITE Negative (Negative); PH 5.5 (4.5-8.0); SPECIFIC GRAVITY 1.025 (1.001-1.030)
[2024-01-05 09:08] LABS: CALCIUM OXALATE CRYSTALS 2+
== END | disposition home or self-care (01) ==
LOC: CT 00:33 → LAB 00:33 → CT 08:00
PROVIDERS: ATTEND Family Medicine
DX: Z12.2 Encounter for screening for malignant neoplasm of respiratory organs (principal); J43.9 Emphysema, unspecified; I70.0 Atherosclerosis of aorta; I51.7 Cardiomegaly; I70.1 Atherosclerosis of renal artery; R79.89 Other specified abnormal findings of blood chemistry; R53.83 Other fatigue; E78.5 Hyperlipidemia, unspecified; E55.9 Vitamin D deficiency, unspecified; E11.9 Type 2 diabetes mellitus without complications

== ENCOUNTER 2024-01-19 21:24 | Emergency (ER) | payer OTHER ==
[~2024-01-19] VITALS: Ht 152.4 cm; Wt 55.3 kg
[~2024-01-19 21:24] MED LIST changes: -IOHEXOL 300 MG/ML 100 ML VIAL IV ONE; -METHOCARBAMOL500 M1 PO; -PREDNISONE20 M1 PO
[2024-01-19] MEDS ORDERED: METHOCARBAMOL 500 MG TAB PO ONE (23:15)
[2024-01-19] MEDS ORDERED: methylPREDNISolone sod succ 125 MG VIAL IM ONE (23:15)
[2024-01-20] MEDS ORDERED: PREDNISONE20 M1 PO (00:14)
[2024-01-20] MEDS ORDERED: METHOCARBAMOL500 M1 PO (00:14)
== END 2024-01-20 02:24 | disposition home or self-care (01) ==
LOC: ED 21:24
DX: M51.16 Intervertebral disc disorders with radiculopathy, lumbar region (principal); M54.50 Low back pain, unspecified; F17.200 Nicotine dependence, unspecified, uncomplicated; Z79.2 Long term (current) use of antibiotics; Z79.899 Other long term (current) drug therapy; Z79.82 Long term (current) use of aspirin; Z90.49 Acquired absence of other specified parts of digestive tract; Z90.710 Acquired absence of both cervix and uterus; Z95.5 Presence of coronary angioplasty implant and graft

== ENCOUNTER 2024-01-28 12:51 | Emergency (ER) | payer OTHER ==
[~2024-01-28] VITALS: Wt 62.4 kg
[~2024-01-28 12:51] MED LIST changes: +ETOMIDATE 20 MG/10 ML VIAL IV ONE; +METHOCARBAMOL500 M1 PO; +PREDNISONE20 M1 PO; +ROCURONIUM BROMIDE 50 MG/5 ML SYRINGE IV ONE
[2024-01-28] MEDS ORDERED: LORazepam 2 MG/ML VIAL IV ONE (13:00)
[2024-01-28 13:42] LABS: BILIRUBIN Negative (Negative); BLOOD 2+ (Negative); CLARITY Clear (Clear); COLOR Yellow (Yellow); GLUCOSE 2+ (Negative); KETONE Negative (Negative); LEUKO ESTERASE Negative (Negative); NITRITE Negative (Negative)
[2024-01-28] MEDS ORDERED: IOHEXOL 350 MG/ML 100 ML VIAL IV ONE ×2 (13:45→13:57)
[2024-01-28] MEDS ORDERED: SODIUM CHLORIDE 0.9% 100 ML BAG IV ONE (13:45)
[2024-01-28 13:48] LABS: URINE AMPHETAMINES Negative (1000ng/ml); URINE BARBITURATES Negative (200ng/ml); URINE BENZODIAZEPINES Negative (200ng/ml); URINE CANNABINOIDS (THC) Positive (50ng/ml); URINE COCAINE Negative (300ng/ml); URINE METHADONE Negative (300ng/ml); URINE OPIATES Negative (300ng/ml); URINE PHENCYCLIDINE Negative (25ng/ml)
[2024-01-28] MEDS ORDERED: Ketamine Hydrochloride 500 MG,IV 1 EA in SODIUM CHLORIDE 0.9% 500 ML IV SCH (13:50)
[2024-01-28 13:51] LABS: BACTERIA 2+
[2024-01-28 13:53] LABS: EPITHELIAL CELLS 0-2
[2024-01-28] MEDS ORDERED: SODIUM CHLORIDE 0.9% 100 ML IV ONE (13:58)
[2024-01-28] MEDS ORDERED: niCARdipine hydrochloride 25 MG in SODIUM CHLORIDE 0.9% 240 ML IV SCH (14:05)
[2024-01-28] MEDS ORDERED: PROPOFOL 50 ML IV SCH (14:05)
[2024-01-28 14:15] LABS: HEMATOCRIT 50.3 % (37.0-47.0); MEAN CELL VOLUME 94.9 fl (81.0-99.0); MEAN CORPUSCULAR HGB 30.9 pg (27.0-31.0); MEAN CORPUSCULAR HGB CONC 32.6 g/dl (33.0-37.0); MEAN PLATELET VOLUME 10.7 fl (9.6-12.3); PLATELET COUNT AUTOMATED 199 10*3/uL (130-400); RED CELL DISTRI WIDTH 13.8 % (0-14.5)
[2024-01-28] MEDS ORDERED: ESMOLOL HCL IN STERILE WATER 250 ML IV ONE (14:15)
[2024-01-28 14:16] LABS: MANUAL DIFF REFLEX YES
[2024-01-28 14:26] LABS: ACT PARTIAL THROMBO TIME 27.2 SECONDS (20.0-32.1)
[2024-01-28 14:36] LABS: ALKALINE PHOSPHATASE 61 U/L (46-116); BUN 22 mg/dl (9-23); CHLORIDE 103 mmol/L (98-107); POTASSIUM 2.9 mmol/L (3.4-5.1); SGPT/ALT 33 U/L (5-49); TOTAL PROTEIN 5.4 gm/dL (6.0-8.0)
[2024-01-28 14:38] LABS: PLATELET SUFFICIENCY NORMAL (NORMAL); TOTAL CELLS COUNTED 100 #CELLS
[2024-01-28 14:40] LABS: BURR CELLS MODERATE
[2024-01-28] MEDS ORDERED: HEPARIN SODIUM 250 ML IV SCH (16:10)
== END 2024-01-28 16:20 | disposition short-term general hospital (02) ==
LOC: ED 12:51
PROVIDERS: Internal Medicine
DX: I70.0 Atherosclerosis of aorta (principal); I10 Essential (primary) hypertension; E78.5 Hyperlipidemia, unspecified; I25.10 Atherosclerotic heart disease of native coronary artery without angina pectoris; F12.90 Cannabis use, unspecified, uncomplicated; F17.200 Nicotine dependence, unspecified, uncomplicated; Z90.49 Acquired absence of other specified parts of digestive tract; Z90.710 Acquired absence of both cervix and uterus; Z98.890 Other specified postprocedural states